=== PATIENT | female | born 1980 | race Caucasian/White ===

== ENCOUNTER 2021-02-18 19:15 | Emergency (ER) | payer OTHER ==
[~2021-02-18] VITALS: Ht 142.2 cm; Wt 58.1 kg
[2021-02-19] MEDS ORDERED: LEVOFLOXACIN500 MG PO (00:25)
[2021-02-19] MEDS ORDERED: PYRIDIUM DS200 MG PO (00:25)
[2021-03-06] MEDS ORDERED: ACETAMINOPHEN650 M2 (00:46)
== END 2021-02-19 02:15 | disposition home or self-care (01) ==
LOC: ER 19:15
DX: N30.20 Other chronic cystitis without hematuria (principal)